=== PATIENT | female | born 1965 | race Caucasian/White ===

== ENCOUNTER → 2024-05-11 13:02 | Outpatient (REF) | payer BC, SELFPAY | LOC: HWWDC 13:02 | PROVIDERS: ATTENDING PHYSICIAN Family Medicine | DX: Z12.31 Encounter for screening mammogram for malignant neoplasm of breast (principal) | CPT/HCPCS: 77063; 77067 ==

== ENCOUNTER → 2025-01-23 08:29 | Outpatient (REF) | payer BC, SELFPAY | LOC: MRI 3T 08:29 | PROVIDERS: ATTENDING PHYSICIAN Physician Assistant Surgical; FAMILY PHYSICIAN Family Medicine; REFERRING PHYSICIAN Orthopaedic Surgery | DX: M43.16 Spondylolisthesis, lumbar region (principal); M54.50 Low back pain, unspecified; M54.6 Pain in thoracic spine; Z98.1 Arthrodesis status | CPT/HCPCS: 72148; A9585 ==